=== PATIENT | female | born 1985 | race Caucasian/White ===

== ENCOUNTER 2021-05-05 10:37 | Emergency (ER) | payer OTHER, SELFPAY ==
[2021-05-05 10:52] VITALS: BP 154/100; PULSE 85; RESP 12; TEMP 36.3; O2SAT 100
--- NOTE | 2021-05-05 11:34 | ED.URI ---
HPI - URI/Sore Throat General Chief Complaint: Upper Respiratory Infection Stated Complaint: Cough Time Seen by Provider: 05/05/21 11:38 Source: patient and RN notes reviewed Mode of arrival: ambulatory Limitations: no limitations History of Present Illness HPI Narrative: Lashay 35-year-old female patient who ambulated into the [facility] today. Patient states she has a 2-week history of severe cough sinus congestion ear pain that is now into her chest. Patient has been taking Robitussin and Afrin [id number]. Patient states she had leftover prednisone 10 mg tablets and has been taking 1 daily. Patient also states she is been using ibuprofen PM to sleep at night. Patient states the cough is not waking her up at night. Patient states she has had 2 - Covid tests. Patient states that she had a negative rapid Covid test this AM.. MD elicited complaint: cough Related Data Allergies Allergy/AdvReac Type Severity Reaction Status Date / Time diphenhydramine [Benadryl] Allergy Intermediate Verified 06/15/17 12:42 No Known Allergies Allergy Unverified 10/13/17 07:16 Review of Systems Review of Systems: CONSTITUTIONAL: Denies body aches, fever, chills, or sweats. EYES: Denies visual changes, redness, or discharge. ENT: + rhinorrhea, +congestion, sore throat, + otalgia. CARDIOVASCULAR: Denies chest pain, palpitations, or edema. RESPIRATORY: +cough denies dyspnea. GASTROINTESTINAL: Denies abdominal pain, nausea, vomiting, or diarrhea. GENITOURINARY: Denies dysuria or hematuria. SKIN: Denies rash, itching, or wounds. MUSCULOSKELETAL: Denies back pain, joint pain, or myalgia. NEUROLOGIC: Denies headache, numbness, tingling, or weakness. PSYCH: Denies depression or anxiety. All systems reviewed & are unremarkable except as noted in HPI and below PMFSH Family History Family History Father Hypertension Family history of coronary artery disease Social History Social History Smoking status: Never smoker Alcohol intake: current Comments At time of signature, I have reviewed and agree with nursing past medical, surgical, social and family history unless otherwise noted. Please see nursing chart for further information. There is no relevant family history pertinent to the presenting complaint Exam Narrative: GENERAL: Well-appearing, well-nourished, and in no acute distress. HEAD: Normocephalic, atraumatic. EYES: EOMI. No redness or drainage. Conjunctivae normal. ENT: Mucous membranes pink and moist. Nares erythematous with clear drainage. Maxillary sinus is tender with palpation. Bilateral TMs are dull with moderate fluid noted, no erythema, posterior pharynx is erythemic with 3-4+ tonsils moderate amount of clear postnasal drainage Uvula midline. NECK: Normal AROM. Supple. bilateral Anterior cervical lymphadenopathy. CHEST: No respiratory distress. Clear to auscultation; harsh hacky cough noted. HEART: Regular rate and rhythm. No murmur appreciated. Normal peripheral pulses. MUSCULOSKELETAL: No bony tenderness. EXTREMITIES: Normal range of motion. No edema. SKIN: Warm, dry, no rash. Capillary refill normal. Normal skin turgor. NEURO: No focal deficits. Alert and oriented x3. Gait steady. PSYCH: Normal affect. No signs of depression or anxiety. Course Vital Signs Vital signs: Vital Signs Temperature 36.3 C L 05/05/21 10:52 Pulse Rate 85 05/05/21 10:52 Respiratory Rate 12 05/05/21 10:52 Blood Pressure 154/100 H 05/05/21 10:52 Pulse Oximetry 100 05/05/21 10:52 Temperature 36.3 C L 05/05/21 10:52 Pulse Rate 85 05/05/21 10:52 Respiratory Rate 12 05/05/21 10:52 Blood Pressure 154/100 H 05/05/21 10:52 Pulse Oximetry 100 05/05/21 10:52 Reviewed. Pt has been instructed to follow up with her PCP regarding her elevated blood pressure today. MDM - URI/Sore Throat MDM Narrat
== END 2021-05-05 11:51 | disposition home or self-care (01) ==
PROVIDERS: Emergency Provider Nurse Practitioner Family
DX: J40 Bronchitis, not specified as acute or chronic (principal)
CPT/HCPCS: 99203; G0463